=== PATIENT | male | born 1995 | race Caucasian/White ===

== ENCOUNTER 2018-07-30 23:27 | Emergency (ER) | payer SELFPAY ==
[~2018-07-30] VITALS: Ht 167.6 cm; Wt 61.6 kg
[2018-07-30 23:30] VITALS: BP 141/89
[2018-07-30] MEDS ORDERED: IBUPROFEN 600 MG TABLET ONE (23:52)
[2018-07-31] MEDS ORDERED: IBUPROFEN 200 MG TABLET PO ONE
[2018-07-31 00:17] LABS: RAPID INFLUENZA A Negative (Negative); RAPID INFLUENZA B Negative (Negative)
== END 2018-07-31 00:54 | disposition home or self-care (01) ==
LOC: ED 07-31 00:42
DX: J06.9 Acute upper respiratory infection, unspecified (principal); R50.9 Fever, unspecified
CPT/HCPCS: 87081; 87400; 87880; 99283